=== PATIENT | female | born 1985 | race Caucasian/White ===

== ENCOUNTER 2023-07-16 00:31 | Outpatient (CLI) | payer OTHER ==
[~2023-07-16] VITALS: Ht 167.6 cm; Wt 102.3 kg
--- NOTE | 2023-07-16 00:30 | NUR ---
PATIENT AMBULATORY TO UNIT WITH SPOUSE. STATES SHE HASN'T FELT BABY MOVE MUCH HE USUALLY DOES. DENIES CONTRACTIONS, LEAKING OF FLUID, OR VAGINAL BLEEDING. STATES SHE WAS ADMITTED TO [facility] OVER THE WEEKEND FOR VAGINAL BLEEDING BUT HASN'T BLEED SINCE GETTING DISCHARGED 3 AM.
[2023-07-16] MEDS ORDERED: PRENATAL TABLET PO (00:58)
[2023-07-16] MEDS ORDERED: LR 1,000 ML IV PRN (01:00)
[2023-07-16 01:15] VITALS: BP 108/61; PULSE 89; TEMP 98.4
--- NOTE | 2023-07-16 01:20 | NUR ---
PATIENT EDUCATED ON DISCHARGE INSTRUCTIONS. QUESTIONS INVITED AND ANSWERED. PATIENT AMBULATORY OFF UNIT WITH SPOUSE.
== END 2023-07-16 01:20 | disposition home or self-care (01) ==
LOC: LDRO 00:31 → LDR 00:46 → LDRO 01:20
DX: O36.8190 Decreased fetal movements, unspecified trimester, not applicable or unspecified (principal); Z3A.00 Weeks of gestation of pregnancy not specified
CPT/HCPCS: OP

== ENCOUNTER 2024-02-07 13:23 | Emergency (ER) | payer OTHER ==
[~2024-02-07] VITALS: Ht 165.1 cm; Wt 90.5 kg
[~2024-02-07 13:23] MED LIST: PRENATAL TABLET PO
[2024-02-07 16:09] VITALS: BP 107/70; PULSE 68; TEMP 98
== END 2024-02-07 16:43 | disposition left against medical advice (07) ==
LOC: COL.ER 13:23
DX: R42 Dizziness and giddiness (principal); R11.0 Nausea; R53.83 Other fatigue; Z53.21 Procedure and treatment not carried out due to patient leaving prior to being seen by health care provider